=== PATIENT | male | born 1965 | race Caucasian/White ===

== ENCOUNTER → 2018-04-30 07:28 | Outpatient (CLI) | payer SELFPAY ==
[2018-04-28 08:20] LABS: Bacteria 0 SEEN /hpf (None Seen); Mucous, Urine 0 SEEN /hpf (<or=2+); Red Blood Cells-Urine 0 SEEN /hpf (0-5); Squamous Epithelial Cells - UA 0 SEEN /hpf (0-5); White Blood Cells 0 SEEN /hpf (0-5)
[2018-04-28 08:39] LABS: Hematocrit 48.9 % (40-54); Hemoglobin 15.9 g/dl (13.0-16.5); Mean Corp Hgb Conc 32.5 g/gl (32-36); Mean Corpuscular Hgb 28.8 pg (27.0-32.0); Mean Corpuscular Volume 88.6 fL (80-94); Mean Platelet Vol. 11.5 fl (6.2-12.0); Platelet Count 221 K/mm3 (150-450); RBC Distribution Width CV 13.4 % (11.6-14.6); RBC Distribution Width SD 43.3 fl (35.1-43.9); Red Blood Count 5.52 M/mm3 (4.6-6.2); White Blood Count 5.6 K/mm3 (4.4-11.0)
[2018-04-28 08:40] LABS: Scan Indicated on CBC? Y/N NO
[2018-04-28 08:56] LABS: Hemoglobin A1c 6.1 % (4.2-6.3)
[2018-04-28 09:04] LABS: ALB/GLOB Ratio 0.9 RATIO (0.9-2.4); AST(SGOT) 31 U/L (15-37); Alanine Aminotransfer ALT/SGPT 38 U/L (16-61); Albumin, Serum 3.6 g/dL (3.2-5.0); Alkaline Phosphatase 72 U/L (45-117); Anion Gap 7 (5-15); BUN 19 mg/dL (7-18); BUN/Creat Ratio 18.6 RATIO (10-20); Calcium,Total 8.9 mg/dL (8.5-10.1); Chloride 105 mmol/L (98-107); Cholesterol 171 mg/dL (200); Creatinine, Serum 1.02 mg/dL (0.70-1.30); EST Glomerular Filtration Rate 81 mL/min (>60); Est Glom Filt Rate - Afr Amer 98 mL/min (>60); Globulin 3.8 g/dL (2.2-4.2); Glucose 85 mg/dL (74-106); High Density Lipoprotein 55 mg/dL; PSA,Total - Annual Screen 0.54 ng/mL (0.00-4.00); Potassium 4.1 mmol/L (3.5-5.1); Protein, Total 7.4 g/dL (6.4-8.2); Sodium Level 142 mmol/L (136-145); Thyroid Stim Hormone (TSH) 2.54 uIU/mL (0.358-3.74); Triglycerides 102 mg/dL; Very Low Density Lipoprotein 20 mg/dL (5-40)
[2018-04-28 09:12] LABS: Vitamin D,25 Hydroxy 14.8 ng/mL (29.95-100.01)
[2018-04-28 10:02] LABS: Color, Urine Yellow (Yellow); Glucose, Dipstick Normal (Normal); Ketone-Dipstick Negative (Negative); Leukocyte Esterase-Dipstick Negative /ul (Negative); Nitrite-Dipstick Negative (Negative); Occult Blood-Urine 10 /ul (Negative); Protein-Dipstick Negative (Negative); Urine Bilirubin Dipstick Negative (Negative); Urine Clarity Clear (Clear); Urine Urobilinogen Normal (Normal)
--- NOTE | 2018-04-30 07:30 | EKG12_ITS ---
Test Reason : HEALTH SCREEN Blood Pressure : / mmHG Vent. Rate : 062 BPM Atrial Rate : 062 BPM P-R Int : 170 ms QRS Dur : 086 ms QT Int : 382 ms P-R-T Axes : 063 073 056 degrees QTc Int : 387 ms Normal sinus rhythm Normal ECG Confirmed by PARKER AHUJA ([id number]), mapping editor MARVIN SALEH ([id number]) on 04/30/2018 12:21:30 PM Referred By: Gerard Echeverria Confirmed By:PARKER AHUJA
== END ==
PROVIDERS: Family Provider Nurse Practitioner Family; PCP Nurse Practitioner Family; Referring Provider Nurse Practitioner Family; Visit Provider Nurse Practitioner Family
DX: Z00.00 Encounter for general adult medical examination without abnormal findings (principal)
CPT/HCPCS: 80053; 80061; 81001; 82306; 83036; 84153; 84443; 85027; 93005; G0103

== ENCOUNTER 2019-02-01 05:27 | Day surgery (SDC) | payer SELFPAY, OTHER ==
[2019-01-14 08:20] VITALS: BMI 24.4
--- NOTE | 2019-01-17 08:25 | HP_ITS ---
Intake Vital Signs 01/14/19 Body Mass Index (BMI) 24.4 01/14/19 Height 6 ft 01/14/19 Weight: 185 lb 01/14/19 Body Mass Index (BMI) 25.0 01/14/19 Blood Pressure 130/85 H 01/14/19 Blood Pressure Location Rt brachial 01/14/19 Blood Pressure Position Sitting 01/14/19 Respiratory Rate 16 Intake Visit Reasons: Hernia Chief Complaint: [facility] [employer] Required: No Is patient in pain?: No Allergies No Known Allergies Allergy (Verified 01/14/19 08:20) Medications acetaminophen 325 mg tablet 325 mg PO Q6H PRN 04/28/18 [History Confirmed 01/14/19] ascorbic acid (vitamin C) 500 mg capsule mg PO cap 04/28/18 [History Confirmed 01/14/19] herbal drugs capsule cap PO cap 04/28/18 [History Confirmed 01/14/19] PFSH Medical History History of fractured pelvis (Resolved) Vision problems (Chronic) Kidney stones (Acute) Hearing loss (Chronic) Gastrointestinal problem (Chronic) Surgical History History of hernia repair (Acute) Family History Grandfather , Age 66 Myocardial infarction Grandmother Myocardial infarction Hypertension Mother Heart disease Leaking valves Father Diabetes Diet controlled Social History (Updated 01/17/19 @ 08:25 by Sarthak Vazquez MD) Smoking Status: Never smoker alcohol intake: never substance use type: does not use what type of physical activity do you participate in: none HPI HPI HPI: TAVO ENGLAND, is a 53 M who presents to the office today for HPI HPI Surgical H&P: Yes HPI: TAVO ENGLAND, is a 53 M who presents to the office today for Right groin swelling. The patient reports is been going on for a few months. It is becoming larger and more painful especially with heavy lifting. There is no radiation of the pain. He is not having any nausea or vomiting. ROS General General: No weight change, appetite or fatigue HEENT HEENT: No difficulty swallowing, eye injury or eye surgery Endo Endocrine: No thyroid disease or diabetes mellitus Skin Skin: No rash or changing moles Musc Musculoskeletal: No back problems, arthritis or rheumatoid arthritis Cardio Cardiovascular: No murmur, pacemaker, heart disease, atrial fibrillation, high blood pressure, heart attack, heart stent, palpitations, shortness of breat with exertion or chest pain Psych Psychiatric: No depression or anxiety Resp Respiratory: No shortness of breath, No sleep apnea, No cough, No COPD, No asthma, No emphysema, No wheezing Gastro Gastrointestinal: No abdominal pain, No nausea or vomiting, No diarrhea, No constipation, No blood in stool, No acid reflux, No hemorrhoids, No ulcers, No gallbladder problem, No black,tarry stools Additional Details: Right groin swelling Alexandr Hematologic: No blood thinners, No blood disorders Neuro Neurologic: Yes system reviewed and no additional complaints, except as docu Exam Const General: cooperative Orientation: alert, oriented x3 HENTN Head: normal to inspection Ears: hearing grossly normal bilaterally Eyes General: appearance normal, both eyes and all related structures Visual Patrick: normal visual patrick by confrontation Neck Neck: normal visual inspection Chest Chest palpation & inspection: normal inspection of the chest Resp Effort & Inspection: normal respiratory effort Auscultation: clear to auscultation bilaterally Cardio Rate: regular rate Rhythm: regular rhythm Heart Sounds: no murmurs GI Inspection: non-distended Palpation: soft, nontender Other: Large right inguinal hernia extending into the scrotum which is reducible. [facility] Cervical Spine: normal cervical lordosis, cervical ROM normal Skin General: no rashes or lesions noted Neuro General: alert, oriented x3 Cranial Nerves: CN's II-XI intact bilaterally Cognition: normal cognition Extrem General: normal to inspection, full ROM Psych Appearance: grossly normal Affect: normal affect Assessment & Plan Problems 1. Right inguinal hernia K40.90 Plan The patient has a large right inguinal scrotal hernia. It is reducible. The patient would like this repaired. I discussed different options for repair with him. I discussed open versus robotic assisted laparoscopic. The patient would like robotic assisted laparoscopic repair. I discussed the risks including but not limited to bleeding, infection, spermatic cord injury, chronic groin pain, hernia recurrence. Patient would like to proceed. Sarthak Vazquez MD Pager: [facility] [address] [place] [address], [address] [place] [address] Office: Coding Level of Care Code Off vis,new,level 4 Diagnoses Right inguinal hernia K40.90 Time Spent (min) 45 01/17/19 3048 <Electronically signed by Sarthak ambrose MD> Date _ Sarthak Vazquez MD I have re-examined the patient. There are no clinical changes since date of exam. The patient has changed his mind as to the approach for surgery due to cost. The patient would like an open approach to his right inguinal hernia. I discussed the risks of open surgery with him once more and he agrees to proceed with open right inguinal hernia repair with mesh.
[2019-02-01] VITALS (7 sets, daily range): BP systolic 110–129; BP diastolic 79–90; PULSE 48–67; RESP 16; TEMP 35.9–36.2; O2SAT 95–100; BMI 26.6
[2019-02-01] MEDS: Lactated Ringers 1,000 ML 100 ML IV (06:20)
[2019-02-01] MEDS: Cefazolin 2 GM in 0.9% Normal Saline 100 ML IV (07:10)
--- NOTE | 2019-02-01 07:15 | HERN_PTH ---
PATIENT: TAVO ENGLAND LOC: [facility] [place] U#:[id number] AGE/SX: 53/M ROOM: RE02/01/[address]: Dr. Sarthak Vazquez MD : [id number] BED: DIS: 02/01/2019 SPEC #: [id number] RECD: 02/01/19 08:18 STATUS: RENEE MADISON #: [id number] IRON: 02/01/19 07:[address]: Sarthak Vazquez DEPT: SURGICAL PATHOLOGY RECD BY: Lawrence Little ENTERED: 02/01/19 08:38 SP TYPE: Hernia OTHR DR: Arsalan Du, KNOWLEDGE ARCHITECT-Bernard Tissues: HERNIA Procedures: Surgery Specimen Level II HEADER OPERATION: Inguinal hernia with mesh PRE-OP DIAGNOSIS: Right inguinal hernia TISSUE SUBMITTED: Hernia sac MICROSCOPIC DIAGNOSIS Hernia sac: Fragments of fibroadipose and fibroconnective tissue, consistent with hernia sac with focal chronic inflammation, congestion and hemorrhage. SJ:emma 02/02/19 MICROSCOPIC DESCRIPTION Slides are reviewed. GROSS DESCRIPTION Received in fixative is one container labeled with the patient's name and designated hernia sac. The specimen consists of irregular fragments of red-yellow fatty tissue measuring in aggregate 15 x 8 x 2.5 cm. Sections reveal yellow cut surfaces. Cathode Builder sections are submitted in one cassette. / SAULO:emma 02/01/19 TC:5 CPT: 29591
[2019-02-01] MEDS: Bupiv/Epi 0.25% 30 ML Vial (08:08)
--- NOTE | 2019-02-01 08:44 | PCM.OPRPT ---
Problem List (1) Right inguinal hernia Status: Acute Report of Operation Date of Procedure: 02/01/19 Pre-Operative Diagnosis: Right inguinal hernia Post-Operative Diagnosis: Same Surgery/Procedure Performed:: Right inguinal hernia repair with mesh Specimen's removed: Hernia sac Description of Procedure: Patient was brought back to the operating room and general anesthesia was induced. The right groin was prepped and draped in the usual sterile fashion. An incision was marked with a pen and then anesthetized. Incision was made with a scalpel and electrocautery was used to deepen to the external aponeurosis. A small vein was encountered and tied off. Next a tangela in this external aponeurosis was made with a scalpel and using scissors it was lengthened to the external inguinal ring. The external aponeurosis was grasped with hemostats and elevated and a self-retaining retractor was placed. The inguinal cord was dissected free laterally and medially and a Jose drain was placed below it and it was elevated. The patient had a large indirect hernia sac. This was dissected free from the cord and opened. The hernia contents were adhesed to this. They were taken down with electrocautery and reduced into the abdomen. The hernia sac was then pursestring sutured with a 2-0 silk suture. Next a keyhole mesh was tacked to the pubic tubercle using a 2-0 PDS suture. Interrupted 2-0 PDS sutures were used to suture the mesh laterally to the shelving portion of the inguinal ligament. Next the tails of the mesh were placed around the inguinal cord and it was trimmed in the middle to allow the cord to move more inferiorly. Next it was tacked medially to the conjoined tendon with interrupted 2-0 PDS sutures. The tails were wrapped around the inguinal cord allowing the tip of the pinky finger to be placed along with the cord and then it was sutured to itself using a 2-0 PDS. It was rechecked to ensure that there was enough space between the cord and the mesh. Next the inguinal canal was irrigated and suctioned dry and the Jose was removed. Next the external aponeurosis was reapproximated with a running 3-0 Vicryl suture re-creating the external ring. The Dg's fascia was reapproximated using interrupted 3-0 Vicryl sutures in the incision was once again anesthetized and irrigated. The skin was closed with a running 4-0 Monocryl suture. Glue was then applied. The scrotum was checked and contained both testicles. Patient tolerated the procedure well was brought to PACU in stable condition. Grafts/Implants Used: Bard keyhole mesh - Admit VTE Documentation VTE Mechan Device Prophylaxis: SCD's
--- NOTE | 2019-02-01 08:51 | PCM.DC.HER ---
Discharge Diet: Light diet - advance as tolerated Discharge Activity: Return to Normal Activity, May Not Drive - for 2-3 days or while taking narcotic pain meds., May Shower - with the bandage in place 1-2 days after surgery. Lifting Restrictions: 20 pounds for 8 weeks. Additional Activity Instructions:: Climbing stairs is fine, walking is encouraged. Sitting in bed may be uncomfortable. Sitting up using your lateral muscles (sitting up sideways) is usually more comfortable. Do not drive, work heavy equipment of sign legal documents for 24 hours. If your hernia repair was an ingunial repair, you may have scrotal swelling, an ice pack and/or athletic support can provide more comfort. Pain medications may cause nausea, you should typically eat light foods as you take your pain medications. Pain medications may also cause constipation. If you have difficulty with this, discuss with your doctor. Call your doctor if your incision/area has: Continuous Slow Oozing, Sudden Increased Bleeding, Increased Pain/ Swelling, Increased Redness, Foul Smelling Discharge Call your doctor if you observe: Fever of 101 or Higher Suture Line Care: Avoid Pulling/Pushing, Avoid Pinching/Bending Change Dressing in (Days):: 3 - Leave steri-strips for 1 week. May protect with a guaze bandaid. Cleanse incision/area with: Keep Dressing Clean & Dry Allergies/Adverse Reactions: Allergies No Known Allergies Allergy (Verified 01/25/19 11:26) Medications to take at Discharge acetaminophen 325 mg tablet 325 mg PO Q6H PRN 04/28/18 herbal drugs capsule 1 cap PO DAILY cap 04/28/18 Oxycodone HCl/Acetaminophen [Percocet 5/325] 1 - 2 tablet PO Q4H PRN PRN 5 Days #30 tablet 02/01/19 The following prescriptions were given: Oxycodone HCl/Acetaminophen [Percocet 5/325] 1 - 2 tablet PO Q4H PRN PRN 5 Days #30 tablet PRN Reason: Pain Transmission Status: Sent to [facility] Primary Care Physician: Arsalan Du NP-C [Primary Care Provider] - Test Results: Test results from this visit will be discussed in further detail at your follow-up appointment, if applicable. Please Follow Up With: Sarthak Vazquez MD When: Please call to schedule 2 week follow up appointment. [phone]
== END 2019-02-01 11:09 | disposition home or self-care (01) ==
LOC: SDC 05:29 → AC 05:30
PROVIDERS: Family Provider Nurse Practitioner Family; PCP Nurse Practitioner Family; Referring Provider Surgery; Visit Provider Surgery
PROC: (CPT 49505; principal; 2019-02-01 07:00)
DX: K40.90 Unilateral inguinal hernia, without obstruction or gangrene, not specified as recurrent (principal); Z87.442 Personal history of urinary calculi
CPT/HCPCS: 00840; 49505; 88302; J7120; C1781; J2405